=== PATIENT | male | born 1980 | race Hispanic/Latino ===

== ENCOUNTER → 2023-07-09 | Emergency (ER) | payer BC ==
--- NOTE | 2023-07-09 11:03 | EDPHYS ---
Physician Documentation [facility] Name: Jamar Nguyen Age: 42 yrs Sex: Male : 1980 Arrival Date: 07/09/2023 Time: 10:50 Bed IW1 Private MD: ED Physician Josh Del Angel HPI: 07/09 11:00 This 42 yrs old Male presents to ER via Ambulatory with complaints of Flu ms3 Symptoms. 11:00 42-year-old male with no past medical history presents to the emergency department for ms3 cough, cold, congestion that began on Friday. Patient states his discomfort is a 6/10. Patient denies any alleviating or inciting factors. Patient notes he did have a temperature of 104.1 yesterday. Patient's last Tylenol was at 11 PM.. Historical: - Allergies: 10:57 No Known Allergies; bp - Home Meds: 10:57 None [Active]; bp - PMHx: 10:57 None; bp - Immunization history:: Adult Immunizations up to date. - Social history:: Smoking status: Patient denies any tobacco usage or history of. ROS: 11:00 Abdomen/GI: Negative for abdominal pain, nausea, vomiting, diarrhea, and constipation, ms3 MS/Extremity: Negative for injury and deformity, Skin: Negative for injury, rash, and discoloration, 11:00 Constitutional: Positive for body aches, chills, fever, 11:00 Respiratory: Positive for cough, 11:00 All other systems are negative, Exam: 11:00 Constitutional: This is a well developed, well nourished patient who is awake, alert, ms3 and in no acute distress. Head/Face: Normocephalic, atraumatic. Neck: Trachea midline, no cervical lymphadenopathy. Supple, full range of motion without nuchal rigidity, or vertebral point tenderness. No Meningismus. Chest/axilla: Normal chest wall appearance and motion. Nontender with no deformity. 11:00 Cardiovascular: Rate: tachycardic, Rhythm: regular, Pulses: no pulse deficits are appreciated, Heart sounds: normal, normal S1and S2, Vital Signs: 10:55 BP 161 / 109; Pulse 113; Resp 18; Temp 97.6; Pulse Ox 99% ; Weight 94.35 kg; Height 5 bp ft. 10 in. ; 10:55 Body Mass Index 29.84 (94.35 kg, 177.8 cm) bp MDM: 10:59 Patient medically screened. ms3 11:00 Differential Diagnosis: Bronchitis Influenza Upper Respiratory Infection. Data ms3 reviewed: vital signs, nurses notes, and as a result, I will discharge patient. Test considered but Not performed: Labs: Influenza. Counseling: I had a detailed discussion with the patient and/or guardian regarding the historical points, exam findings, and any diagnostic results supporting the discharge/admit diagnosis, the need for outpatient follow up, to return to the emergency department if symptoms worsen or persist or if there are any questions or concerns that arise at home. Special discussion: I discussed with the patient/guardian in detail that at this point there is no indication for admission to the hospital. It is understood, however, that if the symptoms persist or worsen the patient needs to return immediately for re-evaluation. ED course: Discussed physical exam findings with patient and his . Offered patient influenza testing; however, discussed patient is outside treatment window. Patient opted not to have testing performed. Discussed [id number] Tylenol, ibuprofen with patient. Patient to follow-up with primary care physician 2 to 3 days. Patient understands and agrees with plan. All questions were answered. Return precautions discussed include worsening symptoms, or any other concerns. Administered Medications: No medications were administered Disposition Summary: 07/09/23 11:03 Discharge Ordered Notes: Location: Home ms3 Condition: Stable ms3 Diagnosis - Fever, unspecified ms3 - Myalgia ms3 - Cough ms3 Followup: ms3 - With: Sesar Godfrey DO - When: 2 - 3 days - Reason: Recheck today's complaints Discharge Instructions: - Discharge Summary Sheet ms3 - Fever, Adult ms3 - Influenza, Adult ms3 - Cough, Adult ms3 Forms: - Work release form ll1 - Medication Reconciliation Form ms3 - Thank You Letter ms3 - Antibiotic Education ms3 - Prescription Opioid Use ms3 - Patient Portal Instructions ms3 - Leadership Thank You Letter ms3 Prescriptions: - benzonatate 200 mg Oral capsule - take 1 capsule ORAL route 3 times per day as needed; 20 capsule; Refills: 0, ms3 Product Selection Permitted Signatures: Binh Mendez RN RN Josh Schmitz DO DO ms3
--- NOTE | 2023-07-09 11:03 | ER ---
Nurse's Notes [facility] Name: Jamar Nguyen Age: 42 yrs Sex: Male : 1980 Arrival Date: 07/09/2023 Time: 10:50 Bed IW1 Private MD: Diagnosis: Fever, unspecified;Myalgia;Cough Presentation: 07/09 10:55 Chief complaint: Patient states: FLU-LIKE FEVER, COUGH, BODY ACHES SINCE Y/D. bp Coronavirus screen: At this time, the client does not indicate any symptoms associated with coronavirus-19. Ebola Screen: No symptoms or risks identified at this time. Initial Sepsis Screen: Does the patient meet any 2 criteria? HR > 90 bpm. No. Patient's initial sepsis screen is negative. Does the patient have a suspected source of infection? No. Patient's initial sepsis screen is negative. Risk Assessment: Do you want to hurt yourself or someone else? Patient reports no desire to harm self or others. Onset of symptoms was July 08, 2023. 10:55 Method Of Arrival: Ambulatory bp 10:55 Acuity: CASSANDRA 4 bp Triage Assessment: 10:57 General: Appears distressed, Behavior is calm, cooperative, appropriate for age. Pain: bp Denies pain. EENT: Reports nasal congestion. Respiratory: Reports cough that is. Historical: - Allergies: 10:57 No Known Allergies; bp - Home Meds: 10:57 None [Active]; bp - PMHx: 10:57 None; bp - Immunization history:: Adult Immunizations up to date. - Social history:: Smoking status: Patient denies any tobacco usage or history of. Screenin:28 [facility] ED Fall Risk Assessment (Adult) Score/Fall Risk Level 0 - 2 = Low Risk ll1 Oriented to surroundings, Maintained a safe environment, Educated pt \T\ family on fall prevention, incl call for assistance when getting out of bed, Hourly rounding (assess needs \T\ fall precautionary measures) done. Abuse screen: Denies threats or abuse. Nutritional screening: No deficits noted. Tuberculosis screening: No symptoms or risk factors identified. Assessment: 11:28 Reassessment: No changes from previously documented assessment. Patient and/or family ll1 updated on plan of care and expected duration. Pain level reassessed. Vital Signs: 10:55 BP 161 / 109; Pulse 113; Resp 18; Temp 97.6; Pulse Ox 99% ; Weight 94.35 kg; Height 5 bp ft. 10 in. ; 10:55 Body Mass Index 29.84 (94.35 kg, 177.8 cm) bp ED Course: 10:51 Patient arrived in ED. rg4 10:51 Josh Del Angel DO is Attending Physician. ms3 10:57 Triage completed. bp 10:58 Arm band placed on. bp 11:02 Sesar Godfrey DO is Referral Physician. ms3 11:28 No provider procedures requiring assistance completed. Patient did not have IV access ll1 during this emergency room visit. 11:29 Patient has correct armband on for positive identification. Provided Education on: n/a. ll1 Administered Medications: No medications were administered Medication: 11:29 VIS not applicable for this client. ll1 Outcome: 11:03 Discharge ordered by MD. ms3 11:29 Discharged to home ambulatory, ll1 11:29 Condition: stable 11:29 Discharge instructions given to patient, family, Instructed on discharge instructions, follow up and referral plans. medication usage, Demonstrated understanding of instructions, follow-up care, medications, Prescriptions given X 1, 11:29 Patient left the ED. ll1 Signatures: Cherelle Fitch rg4 Binh Mendez, RN RN bp Coco Anderson RN RN ll1 Josh Del Angel DO DO ms3
[2023-07-09 11:52] VITALS: BP 161/109; TEMP 97.6; O2SAT 99
== END ==
LOC: ER 10:50
DX: R50.9 Fever, unspecified (principal); M79.10 Myalgia, unspecified site; R05.9 Cough, unspecified
CPT/HCPCS: 99283